=== PATIENT | female | born 1990 | race African-American/Black ===

== ENCOUNTER 2019-10-05 16:28 | Emergency (ER) | payer OTHER, SELFPAY ==
[2019-10-05] MEDS ORDERED: AMOXicillin 250 MG CAP ONE (17:00)
== END 2019-10-05 17:05 | disposition home or self-care (01) ==
LOC: BURERS 16:28
DX: R22.2 Localized swelling, mass and lump, trunk (principal); K08.89 Other specified disorders of teeth and supporting structures
CPT/HCPCS: 99283